=== PATIENT | male | born 1970 | race Caucasian/White ===

== ENCOUNTER 2017-06-07 07:59 | Day surgery (SDC) | payer OTHER ==
[~2017-06-07] VITALS: Ht 190.5 cm; Wt 113.4 kg
[2017-06-07] MEDS ORDERED: BUPIVACAINE-MPF 0.25% 30 ML VIAL INJ ONE (09:24)
[2017-06-07] MEDS ORDERED: GLYCOPYRROLATE 0.2 MG/ML VIAL ONE (09:46)
[2017-06-07] MEDS ORDERED: DEXAMETHASONE 4 MG/ML VIAL ONE (09:46)
[2017-06-07] MEDS ORDERED: DESFLURANE 240 ML BTL INH ONE (09:46)
[2017-06-07] MEDS ORDERED: SUCCINYLCHOLINE CHLORIDE 200 MG/10 ML VIAL IVP ONE (09:46)
[2017-06-07] MEDS ORDERED: ROCURONIUM 50 MG/5 ML VIAL IV ONE (09:46)
[2017-06-07] MEDS ORDERED: ONDANSETRON 4 MG/2 ML VIAL ONE (09:46)
[2017-06-07] MEDS ORDERED: KETOROLAC 60 MG/2 ML VIAL IM ONE (09:46)
[2017-06-07] MEDS ORDERED: PROPOFOL 200 MG/20 ML VIAL IV ONE (09:46)
[2017-06-07] MEDS ORDERED: NEOSTIGMINE 1:1000 10 MG/10 ML VIAL ONE (09:46)
[2017-06-07] MEDS ORDERED: MORPHINE SULFATE 4 MG/ML SYR ONE (09:53)
[2017-06-07] MEDS ORDERED: MEPERIDINE 50 MG/ML SYR ONE (09:53)
[2017-06-07] MEDS ORDERED: MIDAZOLAM 2 MG/2 ML VIAL ONE (09:53)
[2017-06-07] MEDS ORDERED: fentaNYL 0.05 MG/ML VIAL ONE (09:53)
[2017-06-07] MEDS ORDERED: MEPERIDINE 25 MG/ML SYR IVP PRN ×2 (10:25)
[2017-06-07] MEDS ORDERED: MIDAZOLAM 2 MG/2 ML VIAL IVP ONE (10:25)
[2017-06-07] MEDS ORDERED: ceFAZolin 1,000 MG VIAL ONE (11:16)
[2017-06-07] MEDS ORDERED: NACL 0.9% 1,000 ML IV SCH (12:04)
[2017-06-07] MEDS ORDERED: ONDANSETRON 4 MG/2 ML VIAL IV PRN (12:05)
[2017-06-07] MEDS ORDERED: HYDROmorphone PFS 2 MG/ML SYR IVP PRN (12:05)
[2017-06-07] MEDS ORDERED: HYDROcodone/APAP 5/325 MG 1 TAB TAB PO PRN (12:05)
[2017-06-07] MEDS ORDERED: ACETAMINOPHEN 325 MG TAB PO PRN (12:05)
[2017-06-07] MEDS ORDERED: MORPHINE SULFATE 4 MG/ML SYR IV PRN (12:05)
[2017-06-07] MEDS ORDERED: MORPHINE SULFATE 2 MG/ML SYR IVP PRN (12:05)
[2017-06-07 17:03] VITALS: BP 127/83
[2017-06-07] MEDS ORDERED: ACET-5629 PO ×2 (17:26→17:31)
[2017-06-07] MEDS ORDERED: CEPH500C16 PO (18:22)
[2017-06-07] MEDS ORDERED: CEPH250C16 PO (18:24)
== END 2017-06-07 18:55 | disposition home or self-care (01) ==
LOC: MDS 07:59 → MMU 07:59 → MTU 12:22 → MDS 18:55
PROVIDERS: ATTEND Surgery
DX: K80.10 Calculus of gallbladder with chronic cholecystitis without obstruction (principal); K42.9 Umbilical hernia without obstruction or gangrene; G47.30 Sleep apnea, unspecified
CPT/HCPCS: 47562; 49585; 71045; 82374; C1781; C1887; J0330; J0690; J1100; J1885; J2175; J2250; J2405; J2704; J2710; J3010; J3490; J7030; J7060; J7120; J2270

== ENCOUNTER 2018-09-30 06:50 | Day surgery (SDC) | payer OTHER ==
[~2018-09-30] VITALS: Ht 190.5 cm; Wt 117.9 kg
[~2018-09-30 06:50] MED LIST: ACET-5629 PO; CEPH250C16 PO
[2018-09-30] MEDS ORDERED: BUPIVACAINE-MPF/EPI 0.25% 30 ML VIAL INJ ONE (09:19)
[2018-09-30] MEDS ORDERED: LIDOCAINE/EPI MPF 1%1:200000 30 ML VIAL INJ ONE ×2 (09:19→09:21)
[2018-09-30] MEDS ORDERED: fentaNYL 0.05 MG/ML VIAL ONE (09:37)
[2018-09-30] MEDS ORDERED: MIDAZOLAM 2 MG/2 ML VIAL ONE (09:37)
[2018-09-30] MEDS ORDERED: LACTATED RINGERS 1,000 ML IV SCH (09:56)
[2018-09-30] MEDS ORDERED: ONDANSETRON 4 MG/2 ML VIAL IVP PRN (10:00)
[2018-09-30] MEDS ORDERED: HYDROmorphone 1 MG/ML AMP IVP PRN (10:00)
[2018-09-30] MEDS ORDERED: diphenhydrAMINE 50 MG/ML VIAL IVP PRN (10:00)
[2018-09-30] MEDS ORDERED: MEPERIDINE 25 MG/ML SYR IVP PRN (10:00)
== END 2018-09-30 11:40 | disposition home or self-care (01) ==
LOC: MDS 06:50 → MMU 06:51 → MDS 11:40
PROVIDERS: ATTEND Surgery
DX: D17.21 Benign lipomatous neoplasm of skin and subcutaneous tissue of right arm (principal); D17.1 Benign lipomatous neoplasm of skin and subcutaneous tissue of trunk; G47.30 Sleep apnea, unspecified; Z98.890 Other specified postprocedural states; Z90.49 Acquired absence of other specified parts of digestive tract; Z79.899 Other long term (current) drug therapy
CPT/HCPCS: 21930; 25071; 71045; 88304; J0690; J2001; J2250; J3010; J3490; J7060; J7120